=== PATIENT | male | born 1970 | race Caucasian/White ===

== ENCOUNTER 2017-10-03 19:18 | Emergency (ER) | payer OTHER ==
[~2017-10-03] VITALS: Ht 180.3 cm; Wt 90.7 kg
[~2017-10-03 19:18] MED LIST: FLOMAX(MONOGRA0.4 MG PO; INDOMETHACIN25 MG PO
[2017-10-03 19:26] VITALS: BP 150/86
--- NOTE | 2017-10-03 19:32 | ED HAND/WRIST INJURY COMPLAINT ---
History of Present Illness General Chief Complaint: Hand or Wrist Injury Stated Complaint: SPLINTER IN R POINTER FINGER Source: patient Exam Limitations: no limitations Vital Signs & Intake/Output Vital Signs & Intake/Output Vital Signs Date Time Temp Pulse Resp B/P B/P Pulse O2 O2 Flow FiO2 Mean Ox Delivery Rate 10/04 1927 Room Air 10/03 1925 96.8 93 20 150/86 96 Room Air Allergies Coded Allergies: NO KNOWN ALLERGIES (11/14/14) Reconcile Medications Indomethacin 25 MG CAP 1 CAP PO TID PRN PAIN with food Tamsulosin Hydrochloride (Flomax) 0.4 MG CAP.ER.24H 1 CAP PO DAILY RENAL COLIC Triage Note: PT TO TRIAGE C/O SPLINTER TO R POINTER FINGER FROM SUNDAY WHILE MOVING A PIECE OF OLD WOOD. PT SAW PCP YESTERDAY, HAD TETANUS AND WAS PUT ON ABX BUT FEELS THERE IS STILL SOMETHING IN THERE. EVAL'D BY MICHELLE Nunes IN TRIAGE. Triage Nurses Notes Reviewed? yes Occurred: 5 DAYS Duration: day(s): (5) Timing: no prior history Injury Environment: home Severity: mild Severity Numbers: 4 Pain/Injury Location: Right: 2nd finger. HPI: Patient is a 47-year-old male presenting to the emergency department chief complaint of splinter to right pointer finger that happened approximately 5 days ago. Patient was trying to fix up an old piece of wood when it went through his finger. He was able to pull it out. Still having pain and noticed some increased swelling. Unsure if anything is still stuck there. Denies fevers or chills nausea vomiting chest pain or shortness of breath. No numbness or tingling. Patient saw primary care physician yesterday and was started on antibiotics. (Gerda Tracey) Past History Travel History Traveled to [place] past 21 day No Medical History Any Pertinent Medical History? 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 No (Gerda Tracey) Review of Systems Review of Systems Constitutional: Reports: no symptoms. Comments Review of systems: See HPI, All other systems negative. Constitutional, no chills fever or weight loss HEENT: No visual changes no sore throat no congestion Cardiovascular: No chest pain ,palpitation Skin, no jaundice Respiratory: No dyspnea cough sputum or hemoptysis GI: No nausea no vomiting Muscle skeletal: no back pain, no neck pain, Neurologic: No numbness no confusion Psych: No stress anxiety Immunology: No splenectomy or history of AIDS (Gerda Tracey) Physical Exam Physical Exam General Appearance: well developed/nourished, no apparent distress, alert, awake , comfortable Hand Left: normal inspection, normal range of motion Hand Right: swelling Comments: Well-developed well-nourished person in no acute distress HEENT: atraumatic, normocephalic Neck: NORMAL INSPECTION Respiratory: No respiratory distress. Extremity: Full range of motion of all digits on the left hand without difficulty or pain. Refill intact in left upper extremity. Radial pulses are 2 + bilaterally. Neuro: Alert oriented x3, motor sensory normal Skin:MILD EDEMA NOTED OVER RIGHT INDEX FINGER, MIDDLE PHALANX, NO ERYTHEMA. SMALL ABRASION, NO PALPABLE FOREIGN BODY. NO ERYTHEMA. Psych: Mood and affect is normal, memory and judgment is normal. (Gerda Tracey) Progress Differential Diagnosis: sprain, CELLULITIS, SPLINTER, Plan of Care: PT WILL CONTINUE ABX. WARM SOAKS. GIVEN HAND SPECIALIST TO FOLLOW UP WITH IF SYMPTOMS PERSIST. PT HAS ONLY TAKE 1 DOSE OF ABX. (Gerda Tracey) Departure Departure Time of Disposition: 1930 Disposition: HOME OR SELF CARE Condition: Stable Clinical Impression Primary Impression: Splinter in skin Referrals: Edilia LADD,Alexandro Barreto (PCP/Family) Lc LADD,Zbigniew Additional Instructions: Follow-up with hand specialist if symptoms worsen. Take antibiotics as prescribed. Add on anti-inflammatory. WARM SOAKS. Departure Forms: Customer Survey General Discharge Information (Gerda Tracey) PA/JACQUARD LOOM WEAVER Co-Sign Statement Statement: ED Attending supervision documentation- [] I saw and evaluated the patient. I have also reviewed all the pertinent lab results and diagnostic results. I agree with the findings and the plan of care as documented in the PA's/JACQUARD LOOM WEAVER's documentation. [X] I have reviewed the ED Record and agree with the PA's/JACQUARD LOOM WEAVER's documentation. [] Additions or exceptions (if any) to the PAs/JACQUARD LOOM WEAVER's note and plan are summarized below: [] (Maury Grace DO)
== END 2017-10-03 19:46 ==
LOC: ERH 19:18
DX: S60.450A Superficial foreign body of right index finger, initial encounter (principal); W45.8XXA Other foreign body or object entering through skin, initial encounter; Y93.89 Activity, other specified; Y92.000 Kitchen of unspecified non-institutional (private) residence as the place of occurrence of the external cause
CPT/HCPCS: 99282

== ENCOUNTER 2018-03-02 14:43 | Emergency (ER) | payer OTHER ==
[~2018-03-02] VITALS: Ht 182.9 cm; Wt 117.0 kg
[2018-03-02 14:50] VITALS: BP 116/80
--- NOTE | 2018-03-02 15:51 | RADIOLOGY REPORT ---
EXAMINATION: XR TIBIA AND FIBULA, RIGHT CLINICAL INFORMATION: Laceration, question foreign body COMPARISON: None TECHNIQUE: AP and lateral views of the right tibia and fibula were obtained. FINDINGS: There are soft tissue changes along the medial right lower extremity consistent with the provided history of laceration. Several radiopaque foci are identified. At least one focus is located at the mid to lower diaphysis within the anterior subcutaneous tissues measuring approximately 6 mm in size. This localizes to the medial aspect of the right lower extremity. A second rounded hyperdensity projects over the intraosseous space at the level of the mid diaphysis most likely within the anterior soft tissues. This can be seen on the oblique view. Superior to this finding there are 2 additional hyperdense foci which are suspicious for additional radiopaque foreign bodies. Inferior to the dominant radiodensity there are at least 6 smaller hyperdense foci which likely localizes to the anterior subcutaneous tissues. These extend to level of the metadiaphysis of the right distal tibia. The bones of the tibia and fibula appear intact. 1. IMPRESSION: 1. No acute fracture. 2. At least 10 radiodense foci within the subcutaneous tissues of the anteromedial right lower extremity suspicious for radiopaque foreign bodies.
[2018-03-02] MEDS ORDERED: KEFLEX500 M1 PO (17:05)
--- NOTE | 2018-03-02 17:06 | ED GENERAL ADULT ---
History of Present Illness General Chief Complaint: Laceration Procedure Stated Complaint: LAC TO RIGHT LEG FROM GLASS Source: patient Exam Limitations: no limitations Vital Signs & Intake/Output Vital Signs & Intake/Output ED Intake and Output 03/03 0000 03/02 1200 Intake Total Output Total Balance Patient 258 lb Weight Weight Reported by Patient Measurement Method Allergies Coded Allergies: NO KNOWN ALLERGIES (11/14/14) Reconcile Medications Cephalexin (Keflex) 500 MG CAPSULE 1 CAP PO TID WOUND PPX Indomethacin 25 MG CAP 1 CAP PO TID PRN PAIN with food Tamsulosin Hydrochloride (Flomax) 0.4 MG CAP.ER.24H 1 CAP PO DAILY RENAL COLIC Triage Note: PT TO ED C/O LAC TO RLE FROM BROKEN GLASS, 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 BLEEDING NOT CONTROLLED, DRESSING APPLIED IN TRIAGE. Triage Nurses Notes Reviewed? yes Onset: Abrupt Duration: hour(s): (2) HPI: 47-year-old male presents for a laceration on his right lower leg. Patient reports he was cleaning up some glass he put it in a bag. He was carrying a trash bag when one of the pieces of glass cut the side of the bag which hit against his leg. He has a laceration to the medial right lower leg. There is active bleeding. Patient is up-to-date on vaccines. He denies any numbness or tingling (Sukhdeep Scruggs) Past History Travel History Traveled to [place] past 21 day No Medical History Any Pertinent Medical History? 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 No (Sukhdeep Scruggs) Review of Systems Review of Systems Constitutional: Reports: no symptoms. EENTM: Reports: no symptoms. Respiratory: Reports: no symptoms. Cardiovascular: Reports: no symptoms. GI: Reports: no symptoms. Genitourinary: Reports: no symptoms. Musculoskeletal: Reports: no symptoms. Skin: Reports: see HPI (LACERATION). Neurological/Psychological: Reports: no symptoms. Hematologic/Endocrine: Reports: no symptoms. Immunologic/Allergic: Reports: no symptoms. All Other Systems: Reviewed and Negative (Sukhdeep Scruggs) Physical Exam Physical Exam General Appearance: well developed/nourished, no apparent distress, alert, awake Head: atraumatic, normal appearance Eyes: Bilateral: normal appearance, PERRL, EOMI. Ears, Nose, Throat: hearing grossly normal Neck: normal inspection, supple, full range of motion Respiratory: no respiratory distress Peripheral Pulses: 2+ tibialis posterior (R), 2+ tibialis posterior (L), 2+ dorsalis pedis (R), 2+ dorsalis pedis (L) Extremities: normal range of motion, no edema, there is a 2.5 cm linear vertical laceration located on the medial aspect of the right lower leg. Moderate active bleeding present. Subcutaneous tissue is visible. No foreign bodies are noted. Full range of motion is intact. Patient has a history of previous injuries to thhe right lower extremity. There are palpable foreign bodies to the lateral aspect and anterior aspect of the right lower leg Neurologic/Psych: no motor/sensory deficits, awake, alert, oriented x 3, normal gait Skin: intact, normal color, warm/dry Core Measures ACS in differential dx? No CVA/TIA Diagnosis: No Sepsis Present: No Sepsis Focused Exam Completed? No (Sukhdeep Scruggs) Progress Differential Diagnoses I considered the following diagnoses in my evaluation of the patient: [ Laceration, foreign body, tendon injury] Plan of Care: Patient is here for evaluation of a laceration to the right lower leg. It is caused by piece of glass. X-rays do show evidence of radiopaque foreign bodies to the right lower leg but there does not appear to be foreign bodies on exam in the area of the laceration. Also there is a history of previous injuries and there are palpable foreign bodies to areas of the lateral and anterior lower leg. The wound was cleaned with copious amounts sterile water. 10 4-0 nylon simple interrupted sutures used to approximate wound patient tolerated well. Discussed patient with possibility of a retained foreign body. he'll be placed on antibiotics. Is up-to-date on tetanus. Discussed return precautions patient agrees to plan return in 10 days for suture removal. Return sooner with any concern Initial ED EKG: none (Sukhdeep Scruggs) Departure Departure Disposition: HOME OR SELF CARE Condition: Stable Clinical Impression Primary Impression: Laceration Referrals: Edilia LADD,Alexandro Barreto (PCP/Family) Additional Instructions: Keep the area clean and dry. Tylenol and ibuprofen for pain. Take antibiotics as directed for the full course. Change dressing daily. Apply bacitracin for 3 days only. After day 5 or 6 you can start to leave the area open to air dry if you'll be doing something where he may get dirty keep it covered. Look out for signs of infection like redness swelling discharge or pain the sutures need to come out in about 10 days. Return sooner with any concerns. Please go over all results of today's visit with your primary care doctor. Contact your primary care doctor to let them know you were here in the emergency room. There may be nonspecific findings which may not be related to your visit today here in the emergency room but may require further evaluation and chronic monitoring by your primary care doctor. If you had a laceration today the chance of foreign body always remains. You should follow-up with your primary care doctor for recheck in 3-5 days for a wound check. If you had an x-ray done there is a chance that a fracture could have been missed on initial read and you should follow-up with your primary care doctor for repeat x-rays if symptoms persist. If your blood pressure was elevated here in the emergency room please have rechecked by [facility] primary care doctor within the next 48. If you were prescribed a narcotic here in the emergency room or any type of controlled substances you're not allowed to drive while taking this medication or operate any type of heavy machinery. Narcotics can make you feel lightheaded dizziness nausea and can cause constipation. You may need to pickle cutter a stool softener. Thank you for choosing [facility] emergency room. Please return to the emergency room immediately if you have any other concerns worsening of symptoms. Departure Forms: Customer Survey General Discharge Information Prescriptions: Current Visit Scripts Cephalexin (Keflex) 1 CAP PO TID #30 CAP (Sukhdeep Scruggs) PA/PLASTIC CABLEMAKING MACHINE OPERATOR Co-Sign Statement Statement: ED Attending supervision documentation- [] I saw and evaluated the patient. I have also reviewed all the pertinent lab results and diagnostic results. I agree with the findings and the plan of care as documented in the PA's/PLASTIC CABLEMAKING MACHINE OPERATOR's documentation. [X] I have reviewed the ED Record and agree with the PA's/PLASTIC CABLEMAKING MACHINE OPERATOR's documentation. [] Additions or exceptions (if any) to the PAs/PLASTIC CABLEMAKING MACHINE OPERATOR's note and plan are summarized below: [] (Vida LADD,Luigi Danielson) Procedures Laceration/Wound Repair Laceration/Wound Repair: Wound Location: lower extremity Wound's Depth, Shape: linear, subcutaneous Wound Length (cm): 3 Wound Explored: clean, irrigated extensively Irrigated w/ Saline (ccs): 500 Betadine Prep? Yes Anesthesia: 1% lidocaine Volume Anesthetic (ccs): 10 Wound Debrided: minimal Wound Repaired With: sutures Suture Size/Type: 4:0, nylon Number of Sutures: 10 Layer Closure? No Sterile Dressing Applied: Yes Tetanus Status: up to date (Sukhdeep Scruggs) Critical Care Note Critical Care Note Critical Care Time: non-applicable (Sukhdeep Scruggs)
== END 2018-03-02 17:07 ==
LOC: ERH 14:43
DX: S81.811A Laceration without foreign body, right lower leg, initial encounter (principal); W25.XXXA Contact with sharp glass, initial encounter; Y92.9 Unspecified place or not applicable; Y93.89 Activity, other specified
CPT/HCPCS: 73590-RT; J2001